=== PATIENT | male | born 1990 | race Caucasian/White ===

== ENCOUNTER → 2017-10-04 | Outpatient (CLI) | payer OTHER ==
[~2017-10-04] MED LIST: GADOBUTROL 10 ML VIAL IVP ONE
== END ==
LOC: FIMAGING 07:15
PROVIDERS: ATTEND Physician Assistant Medical
DX: J39.2 Other diseases of pharynx (principal); D44.5 Neoplasm of uncertain behavior of pineal gland
CPT/HCPCS: A9585